=== PATIENT | male | born 1975 | race African-American/Black ===

== ENCOUNTER 2019-03-25 16:49 | Emergency (ER) | payer OTHER ==
--- NOTE | 2019-03-25 17:04 | ED Physician Documentation ---
General Adult - HISTORIAN Historian: patient - HPI Stated Complaint: right leg pain Chief Complaint: Lower Extremity Problem Onset: days ago (three days ) Timing: still present Severity: mild Further Comments: yes (He states his right leg started hurting Wed - he denies any injury. He has a history of CVA and psychatric issues (he is not currently taking any meds - states the stopped his coumadin " a few years ago" . HE states the pain is stabbing when he tries to walk and states it is his whole leg "it is hard to say just where") - ROS CONST: no problems - PAST HX Past History: other Immunizations: UTD Allergies/Adverse Reactions: Allergies Allergy/AdvReac Type Severity Reaction Status Date / Time No Known Allergies Allergy Verified 03/25/19 17:05 Home Medications: Ambulatory Orders Medication Instructions Recorded Aspirin [Nickie] 325 mg PO DAILY 03/25/19 FLUoxetine HCL [Prozac] 10 mg PO QD 03/25/19 Risperidone 2 mg PO BID 03/25/19 - SOCIAL HX Smoking History: non-smoker Alcohol Use: none Drug Use: none - FAMILY HX Family History: No - REVIEWED ASSESSMENTS Nursing Assessment Reviewed: Yes Vitals Reviewed: Yes General Adult Physical Exam - PHYSICAL EXAM GENERAL APPEARANCE: no distress EENT: eye inspection normal, no signs of dehydration NECK: normal inspection RESPIRATORY: no resp distress, chest non-tender, breath sounds normal CVS: reg rate & rhythm, heart sounds normal ABDOMEN: soft, normal bowel sounds, no distension BACK: normal inspection, no CVA tenderness SKIN: warm/dry, normal color, other (leg has no increased swelling, no redness, no obvious injury. Pulses + sensation + FROM + ) EXTREMITIES: non-tender, normal range of motion, no evidence of injury, no edema NEURO: oriented X3 Discharge Clincal Impression: Leg pain, right Referrals: Primary Doctor,No [Primary Care Provider] - 2 Days Comments: 1. Follow up with PCP in 2 days 2. Continue OTC Meds for pain as needed as directed 3. Return to ER for any increasing concerns Condition: Stable Disposition: 01 HOME, SELF-CARE Decision to Admit: NO Date of Decison to Admit: 03/25/19 Decision Time: 17:27
[2019-03-25 17:06] VITALS: BP 108/61
[2019-03-25] MEDS ORDERED: KETOROLAC TROMETHAMINE 60 MG/2 ML VIAL IM ONE (17:15)
== END 2019-03-25 17:32 | disposition home or self-care (01) ==
LOC: ED 16:49
DX: M79.605 Pain in left leg (principal)
CPT/HCPCS: 96372; 99282; 99284; J1885

== ENCOUNTER 2019-04-27 01:08 | Emergency (ER) | payer OTHER ==
[2019-04-27] MEDS ORDERED: KETOROLAC TROMETHAMINE 60 MG/2 ML VIAL IM ONE (01:24)
[2019-04-27 01:25] VITALS: BP 105/77
--- NOTE | 2019-04-27 01:28 | ED Physician Documentation ---
General Adult - HISTORIAN Historian: patient - HPI Stated Complaint: RLE pain Chief Complaint: Lower Extremity Problem Additional Information: Patient is a 43-year-old male who presents to the ER with c/o right lower leg pain. He was treated at [facility] 2 days ago and is being treated for a DVT. He appears to be in no acute distress-he is ambulatory- his ride dropped him off. He is demanding something stronger than the Hydrocodone- explained that the hydrocodone was efficient. He tried to argue- he is requesting Morphine. Explained again that Hydrocodone was sufficient. No redness or swelling to lower extremity. Onset: minutes Timing: still present Severity: mild - ROS CONST: no problems EYES/ENT: none CVS/RESP: none GI/: none MS/SKIN/LYMPH: leg pain - PAST HX Past History: other (DVT) Other History: other (schizophrenia and depression) Immunizations: UTD Allergies/Adverse Reactions: Allergies Allergy/AdvReac Type Severity Reaction Status Date / Time No Known Allergies Allergy Verified 03/25/19 17:05 Home Medications: Ambulatory Orders Medication Instructions Recorded FLUoxetine HCL [Prozac] 10 mg PO QD 03/25/19 Risperidone 2 mg PO BID 03/25/19 Hydrocodone/Acetaminophen [Sharon 1 tab PO PRN PRN 04/27/19 5-325 Tablet] Warfarin Sodium [Coumadin] 1 tab PO DAILY 04/27/19 - SOCIAL HX Smoking History: greater than 1 pack/day Alcohol Use: none Drug Use: none - FAMILY HX Family History: No - VITAL SIGNS Vital Signs: Vital Signs Temp Pulse Resp BP Pulse Ox 98.2 F 99 H 16 105/77 98 04/27/19 01:21 04/27/19 01:21 04/27/19 01:21 04/27/19 01:21 04/27/19 01:21 - REVIEWED ASSESSMENTS Nursing Assessment Reviewed: Yes Vitals Reviewed: Yes ED Results Lab/Radiology - Orders Orders: ED Orders Category Date Time Status Ketorolac Tromethamine [Toradol] Med 04/27/19 01:24 Once 60 mg IM NOW ONE General Adult Physical Exam - PHYSICAL EXAM GENERAL APPEARANCE: no distress EENT: eye inspection normal, ENT inspection normal, no signs of dehydration, ZACHERY NECK: normal inspection, supple RESPIRATORY: breath sounds normal CVS: heart sounds normal, equal pulses ABDOMEN: normal bowel sounds BACK: normal inspection SKIN: warm/dry, normal color EXTREMITIES: non-tender, normal range of motion, no evidence of injury, no edema NEURO: oriented X3, CN's nml as tested, motor nml, sensation nml Discharge Clincal Impression: Right leg pain Referrals: Primary Doctor,No [Primary Care Provider] - 2 Days Additional Instructions: TAke Hydrocodone as directed (has pain med at home) Take Warfarin as directed Reschedule appointment at [facility] this week Alternate Tylenol with Hydrocodone Rest, Keep leg elevated Condition: Good Disposition: 01 HOME, SELF-CARE Decision to Admit: NO Decision Time: 06:00
== END 2019-04-27 01:35 | disposition home or self-care (01) ==
LOC: ED 01:08
DX: M79.604 Pain in right leg (principal)
CPT/HCPCS: 96372; 99283; J1885